=== PATIENT | male | born 1950 | race Caucasian/White ===

== ENCOUNTER 2016-11-09 15:32 | Inpatient (IN) | payer MEDICARE, OTHER ==
[2016-11-09] MEDS ORDERED: TAMSULOSIN HCL 0.4 MG CAP.ER.24H PO SCH (18:00)
[2016-11-09] MEDS ORDERED: ENOXAPARIN SODIUM 30 MG/0.3 ML DISP.SYRIN SQ SCH (18:00)
[2016-11-09] MEDS ORDERED: ACETAMINOPHEN 325 MG TABLET PO PRN (18:07)
[2016-11-09] MEDS ORDERED: ACETAMINOPHEN WITH CODEINE 300MG/30MG TABLET PO PRN (18:07)
--- NOTE | 2016-11-09 19:30 | History and Physical Report ---
History of Present Illnes - History of Present Illness Reason for Visit: Right knee replacement History of Present Illness: This is a 66 year old male who was admitted to [facility] under the care of Dr. 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 He had been seen in consultation by Dr. Berger in April of 2016, however he did not decide to proceed with surgery until this month. I received a call from Dr. Streeter today, as Dr. Berger is off and was made aware of his difficulty urinating while at [facility] and that he had to have a catheter placed but that it was removed and voiding trial was performed today. He came to us with no catheter in place. According to Dr. Streeter, he had experienced no other complications during his hospitalization, and there would be no restrictions on his therapy while at [facility]. - Past Medical History Cardiac: Hyperlipidemia LINUX SERVER ADMINISTRATOR: TIA, Other (Raynaud's disease) Gastrointestinal: GERD Endocrine: Diabetes - Past Surgical History Past Surgical History: Total Knee Replacement (right), Tonsillectomy - Past Social History Smoke: No (chews tobacco) Alcohol: None Drugs: None Lives: With Family Domestic Violence: Negative - Health Maintenance Health Maintenance: Cholesterol Influenza Vaccine: Current for this Influenza Season Pneumonia Vaccine: Yes Resuscitation Status: Resusciation Status Resuscitation Status Full Code - Unable to Obtain History Unable to Obtain: No Review of Systems - Review of Systems Constitutional: negative: Fever, Chills Eyes: negative: pain, vision change, conjunctivae inflammation ENT: negative: Ear Pain, Ear Discharge Respiratory: negative: Cough, Dry Cardiovascular: negative: Chest Pain, Palpitations Gastrointestinal: negative: Nausea Genitourinary: Retention Musculoskeletal: negative: Neck Pain Skin: negative: Rash Neurological: Confusion (and hallucinations (he thought he saw mice and roaches in his room)) - Medications/Allergies Allergies/Adverse Reactions: Allergies Allergy/AdvReac Type Severity Reaction Status Date / Time shrimp AdvReac Intermediate Vomiting Verified 11/09/16 18:45 iodine AdvReac Vomiting Verified 11/09/16 18:45 Current Inpatient Medications: Current Inpatient Medications Acetaminophen (Tylenol) 650 mg PO Q6H PRN PRN Reason: Fever >101 Acetaminophen/Codeine Phosphate (Tylenol #3) 1 each PO Q6 PRN PRN Reason: Mild Pain Amlodipine Besylate (Norvasc) 5 mg PO DAILY LUIS ENRIQUE Aspirin (Aspirin) 81 mg PO DAILY [facility] Enoxaparin Sodium (Lovenox) 30 mg SQ QD [facility] Stop: 11/22/16 18:01 Last Admin: 11/09/16 18:09 Dose: 30 mg Gabapentin (Neurontin) 600 mg PO BID [facility] Glipizide (Glucotrol) [address] [place] [id number] [facility] Metformin HCl (Glucophage) 1,000 mg PO [id number] [facility] Pantoprazole Sodium (Protonix) 40 mg PO 0700 [facility] Tamsulosin HCl (Flomax) 0.4 mg PO 1800 [facility] Last Admin: 11/09/16 18:08 Dose: 0.4 mg Venlafaxine HCl (Effexor Xr) 150 mg PO DAILY [facility] Exam - Exam General: Alert, Oriented to Person, Discheveled HEENT: Atraumatic, PERRLA, EOMI, Mouth Mucous membr. moist/Dickens Neck: No: Stridor, Rigidity Lungs: Clear to auscultation, Normal air movement, Speaks full Sentences Cardiovascular: Regular rate Murmur: No: Systolic Murmur, Diastolic Murmur Murmur Location: No: [place] Abdomen: Normal bowel sounds, Soft, No tenderness Genitourinary: No: Other Male Genitourinary: Penile Edema. No: Scrotal Edema Female Genitourinary: No: Other Integumentary: Normal, Dickens, Warm, Dry Extremities: Other (2+ edema in the right leg. The knee is warm to touch and has limited ROM. The wound is well approximated and not draining or bleeding. ) Neurological: No: Normal gait Psych/Mental Status: Other (confused and hallucinating) Assessment/Plan - Assessment/Plan (1) Total knee replacement status Status: Acute Current Visit: Yes Qualifiers: Laterality: right Qualified Code(s): Z96.651 - Presence of right artificial knee joint Assessment: OT/PT Due to redness will check CBC (2) Diabetes Status: Acute Current Visit: Yes Qualifiers: Diabetes mellitus type: type 2 Diabetes mellitus complication status: without complication Diabetes mellitus long-term insulin use: without long-term use Qualified Code(s): E11.9 - Type 2 diabetes mellitus without complications Assessment: check ACHS accuchecks (3) Hyperlipidemia Status: Acute Current Visit: Yes Qualifiers: Hyperlipidemia type: pure hypercholesterolemia Qualified Code(s): E78.00 - Pure hypercholesterolemia, unspecified; E78.0 - Pure hypercholesterolemia (4) Depression Status: Acute Current Visit: Yes Qualifiers: Depression Type: major depressive disorder Active/Remission status: currently active Psychotic features: without psychotic features VTE Assessment - RISK FACTOR SCORE VTE RISK FACTOR SCORES: AGE OVER 60 YEARS, ANTICIPATED BED CONFINEMENT OR IMMOBILIZATION > 24 HOURS - RISK VTE MODERATE RISK: SCORE OF 2 (RISK PROXIMAL DVT 2-4%) PROPHYAXIS NEEDED (On lovenox)
[2016-11-09] MEDS ORDERED: QUEtiapine FUMARATE 25 MG TABLET PO ONE (19:47)
[2016-11-09 19:49] VITALS: BMI 27.5
[2016-11-09] MEDS ORDERED: GABAPENTIN 300 MG CAPSULE PO SCH (21:00)
[2016-11-09] MEDS ORDERED: HALOPERIDOL LACTATE 5 MG/ML VIAL IM ONE ×2 (21:02→21:21)
[2016-11-09] MEDS ORDERED: LORazepam 2 MG/ML VIAL IM ONE (21:31)
--- NOTE | 2016-11-09 21:56 | Inpatient Progress Note ---
Subjective - Required Recertification Statement I anticipate X number of days because-include discharge plan: 7 - Review of Systems Events since last encounter: I came back in to evaluate Misael as he has become belligerent and agitated. He is suspicious of those around him and is insistent that he be released so that he can go home. His son Isidro is here and seems to have a calming effect on him. He has had 25 mg of Seroquel, 5mg of IM haldol and 2mg of IM ativan. Despite this, he is still belligerent, and cannot be redirected. General: Denies: Chills HEENT: Denies: Head Aches Pulmonary: Denies: Dyspnea, Cough Cardiovascular: Denies: Chest Pain Gastrointestinal: Denies: Nausea, Vomiting Genitourinary: Denies: Dysuria Musculoskeletal: Leg Pain Neurological: Incoordination, Confusion Objective - Exam Vitals and I&O: Vital Signs Temp 98.4 F 11/09/16 21:45 Pulse 82 11/09/16 21:45 Resp 18 11/09/16 21:45 BP 156/92 11/09/16 21:45 Pulse Ox 98 11/09/16 21:45 Intake & Output 11/08/16 11/09/16 11/09/16 23:59 11:59 23:59 Weight 87.09 kg Other: Voiding Method Toilet General: Oriented to Person HEENT: Atraumatic, PERRLA Neck: Supple Lungs: No: Rhonchi, Stridor Cardiovascular: Regular rate Abdomen: No: Absent Bowel Sounds Extremities: Other (1+ edema of RLE) Skin: Normal, [place] Neurological: No: Right Sided Weakness, Left Sided Weakness Psych/Mental Status: No: Mental status NL, Intact Judgment Assessment/Plan - Assessment/Plan (1) Total knee replacement status Status: Acute Current Visit: Yes Qualifiers: Laterality: right Qualified Code(s): Z96.651 - Presence of right artificial knee joint (2) Diabetes Status: Acute Current Visit: Yes Qualifiers: Diabetes mellitus type: type 2 Diabetes mellitus complication status: without complication Diabetes mellitus oil heaterman insulin use: without oil heaterman use Qualified Code(s): E11.9 - Type 2 diabetes mellitus without complications (3) Hyperlipidemia Status: Acute Current Visit: Yes Qualifiers: Hyperlipidemia type: pure hypercholesterolemia Qualified Code(s): E78.00 - Pure hypercholesterolemia, unspecified; E78.0 - Pure hypercholesterolemia (4) Depression Status: Acute Current Visit: Yes Qualifiers: Depression Type: major depressive disorder Active/Remission status: currently active Psychotic features: without psychotic features (5) Postoperative delirium Status: Acute Current Visit: Yes Assessment: Continue medications as in HPI Hope for improvement in am Check CBC and CMP
[2016-11-09 22:24] LABS: MEAN CORPUSCULAR HEMOGLOBIN 32.2 pg (28.0-34.0); MEAN CORPUSCULAR VOLUME 90.9 fl (80.0-100.0)
[2016-11-09 22:37] LABS: eGFR (African) > 60; eGFR (Non-African) > 60
[2016-11-09] MEDS: LORazepam 2 MG/ML VIAL IVP PRN (23:35)
[2016-11-10] MEDS ORDERED: SALINE FLUSH 10 ML DISP.SYRIN IVF ONE ×2 (01:31→06:37)
[2016-11-10] MEDS: LORazepam 2 MG/ML VIAL IVP PRN ×2 (01:37→03:35)
[2016-11-10] MEDS ORDERED: PANTOPRAZOLE SODIUM 40 MG TABLET PO SCH (07:00)
[2016-11-10 08:11] VITALS: BP 151/69
[2016-11-10] MEDS ORDERED: IPRATROPIUM/ALBUTEROL SULFATE 3 ML AMPUL.NEB NEB ONE ×2 (08:11→08:20)
[2016-11-10] MEDS ORDERED: ASPIRIN 81 MG CHEW TAB PO SCH (09:00)
[2016-11-10] MEDS ORDERED: VENLAFAXINE HCL 37.5 MG CAP.ER.24H PO SCH (09:00)
[2016-11-10] MEDS ORDERED: amLODIPine BESYLATE 5 MG TABLET PO SCH (09:00)
== END 2016-11-10 09:05 | disposition short-term general hospital (02) | DRG 93 ==
LOC: SOUTH 15:32
PROVIDERS: ADMIT Family Medicine; ATTEND Family Medicine
DX: R26.9 Unspecified abnormalities of gait and mobility (principal); Z96.651 Presence of right artificial knee joint; E11.9 Type 2 diabetes mellitus without complications; E78.00 Pure hypercholesterolemia, unspecified; F32.9 Major depressive disorder, single episode, unspecified
CPT/HCPCS: 80053; 85027; 94640; 94760; 97116; 97162; 97530; J1630; J1650; J2060; S1016

== ENCOUNTER 2017-07-19 10:18 | Outpatient (CLI) | payer OTHER ==
[2017-07-19 10:37] LABS: BASOPHILS % 0.6 (0.0-1.5); EOSINOPHILS % 2.5 % (0.0-6.8); MEAN CORPUSCULAR HEMOGLOBIN 30.7 pg (28.0-34.0); MEAN CORPUSCULAR VOLUME 90.2 fl (80.0-100.0); MONOCYTES % 6.3 % (0.0-11.0)
[2017-07-19 11:01] LABS: eGFR (African) > 60; eGFR (Non-African) > 60
== END 2017-07-19 10:20 ==
LOC: LAB 10:18
PROVIDERS: ATTEND Family Medicine
DX: E11.9 Type 2 diabetes mellitus without complications (principal); I10 Essential (primary) hypertension
CPT/HCPCS: 36415; 80053; 83036; 85025

== ENCOUNTER 2017-09-26 08:58 | Emergency (ER) | payer MEDICARE, OTHER ==
[2017-09-26 09:32] LABS: BASOPHILS % 0.5 (0.0-1.5); EOSINOPHILS % 2.2 % (0.0-6.8); MEAN CORPUSCULAR HEMOGLOBIN 31.9 pg (28.0-34.0); MEAN CORPUSCULAR VOLUME 92.8 fl (80.0-100.0); MONOCYTES % 6.4 % (0.0-11.0); NEUTROPHILS # 3.4 # k/uL (1.4-7.7)
[2017-09-26 09:41] LABS: eGFR (African) > 60; eGFR (Non-African) > 60
--- NOTE | 2017-09-26 10:38 | ED Physician Documentation ---
General Adult - HISTORIAN Historian: patient - HPI Stated Complaint: Unsteady Gait/Right Arm Pain Chief Complaint: General Adult Further Comments: yes (67 year old male patient presents with complaint of being "off balance". Patient reports he woke up at 0430 and "can't walk straight". Patient reports 3 year history of dizziness. "They can't figure out why". States he went to [facility] and now Dr Hess. Denies any current medical treatment for dizziness. "Dr Hess took me off one medicine". Denies MRI/MRA or neurology consult. Discussed carotid US, reports "done a long time ago". Family reports history of TIA. Patient reports 3 year history of dizziness. states "he walks like he's drunk". states [facility] was his PCP for 3 years and "could not figure it out". Patient states now he goes to Dr hess, states "he hasn't done anything". Patient denies dizziness at present.) - ROS CONST: denies: no problems EYES/ENT: none CVS/RESP: none GI/: none MS/SKIN/LYMPH: other (Neuropathy) NEURO/PSYCH: dizziness - PAST HX Past History: hypertension, other (BPH, depression, diabetic neuropathy, HLD, Insomnia, obstructive sleep apnea, Raynaud disease) Other History: diabetes Type 2 Surgeries/Procedures: other (right knee replacement, tonsilectomy) Allergies/Adverse Reactions: Allergies Allergy/AdvReac Type Severity Reaction Status Date / Time shrimp AdvReac Intermediate Vomiting Verified 11/09/16 18:45 iodine AdvReac Vomiting Verified 11/09/16 18:45 Home Medications: Ambulatory Orders Medication Instructions Recorded Atorvastatin Calcium [Lipitor] 10 mg PO HS 09/07/12 Multivitamin with Minerals 1 each PO DAILY 09/07/12 [Multiple Vitamin] Ranitidine HCl [Zantac] 300 mg PO PM 04/12/15 Tamsulosin HCl [Flomax] 0.4 mg PO DAILY 09/26/17 - SOCIAL HX Smoking History: non-smoker - FAMILY HX Family History: No - VITAL SIGNS Vital Signs: Vital Signs Temp Pulse Resp BP Pulse Ox 98.1 F 72 18 158/84 96 09/26/17 08:58 09/26/17 09:43 09/26/17 08:58 09/26/17 08:58 09/26/17 09:43 - REVIEWED ASSESSMENTS Nursing Assessment Reviewed: Yes Vitals Reviewed: Yes Progress - Progress Progress: Reviewed lab and CT results with patient, son and . recommend neuro evaluation. List of [facility] printed and provided. and son verbalized understanding. Extensive discussion on safety. Patient has cane at home, "I'm gonna use that". Offered to write prescription for walker. reports patient has a walker. Strongly encouraged use of walker or cane at all times, especially with icy weather conditions today. ED Results Lab/Radiology - Lab Results Lab Results: Lab Results 09/26/17 09/26/17 09/26/17 09:25 09:25 09:25 WBC 5.40 K/ul K/ul (4.00-12.00) RBC 4.56 M/ul M/ul (3.90-5.20) Hgb 14.6 g/dL g/dL (12.0-18.0) Hct 42.3 % % (37.0-53.0) MCV 92.8 fl fl (80.0-100.0) MCH 31.9 pg pg (28.0-34.0) MCHC 34.4 g/dL g/dL (30.0-36.0) RDW 13.0 % % (11.3-14.3) Plt Count 238 K/mm3 K/mm3 (130-400) Neut % (Auto) 62.0 % % (39.0-79.0) Lymph % (Auto) 26.9 % % (16.0-50.0) [place] % (Auto) 6.4 % % (0.0-11.0) Eos % (Auto) 2.2 % % (0.0-6.8) Baso % (Auto) 0.5 (0.0-1.5) Neut # (Auto) 3.4 # k/uL # k/uL (1.4-7.7) Lymph # (Auto) 1.5 # k/uL # k/uL (0.6-4.0) [place] # (Auto) 0.4 # k/uL # k/uL (0.0-0.9) Eos # (Auto) 0.1 # k/uL # k/uL (0.0-0.6) Baso # (Auto) 0.0 # k/uL # k/uL (0.0-0.5) Reactive Lymphs % 1.9 % % (0.0-5.0) Reactive Lymphs # 0.1 # k/uL # k/uL (0.0-0.8) Sodium 139 mmol/L mmol/L (136-145) Potassium 4.1 mmol/L mmol/L (3.5-5.1) Chloride 98 mmol/L mmol/L (98-107) Carbon Dioxide 28 mmol/L mmol/L (22-30) BUN 11 mg/dL mg/dL (9-20) Creatinine 0.80 mg/dL mg/dL (0.66-1.25) Est GFR ( Amer) > 60 (60 - ) Est GFR (Non-Af Amer) > 60 (60 - ) Glucose 212 mg/dL H mg/dL (74-106) Calcium 9.0 mg/dL mg/dL (8.4-10.2) Total Bilirubin 0.8 mg/dL mg/dL (0.2-1.3) AST 29 U/L U/L (15-46) ALT 38 U/L U/L (13-69) Alkaline Phosphatase 130 U/L H U/L (38-126) Creatine Kinase 46 U/L L U/L (55-170) Troponin I < 0.03 ng/mL L ng/mL (0.03-0.06) Total Protein 7.1 g/dL g/dL (6.3-8.2) Albumin 4.3 g/dL g/dL (3.5-5.0) - Orders Orders: ED Orders Category Date Time Status Continuous EKG monitoring Q30M Care 09/26/17 09:13 Active Continuous Pulse Oximetry Q30M Care 09/26/17 09:[address] IV Lock 1T Care 09/26/17 09:[address] BRAIN W/O CONTRAST Stat Exams 09/26/17 09:12 Taken CBC/PLATELET/DIFF Routine Lab 09/26/17 09:25 Completed CMP Routine Lab 09/26/17 09:25 Completed CREATINE KINASE Routine Lab 09/26/17 09:25 Completed TROPONIN I (cTnI) Stat Lab 09/26/17 09:25 Completed URINALYSIS Routine Lab 09/26/17 09:13 Ordered EKG WITH COMPARISON Stat Ther 09/26/17 09:13 Ordered General Adult Physical Exam - PHYSICAL EXAM GENERAL APPEARANCE: [id number] N EENT: eye inspection normal, ENT inspection normal, pharynx normal, no signs of dehydration, FAYE, no nystagmus, TM's nml RESPIRATORY: no resp distress, chest non-tender, breath sounds normal CVS: reg rate & rhythm, heart sounds normal, equal pulses, no murmur, no gallop , PMI nml, no JVD, no friction rub, other (SR on monitor) ABDOMEN: soft, no organomegaly, normal bowel sounds, no abdominal bruit, no distension BACK: normal inspection, no CVA tenderness SKIN: normal color, warm/dry, NR, INT, PAL, DR EXTREMITIES: non-tender, normal range of motion, no evidence of injury, no edema , other (unsteady gait, leans to right) NEURO: oriented X3, CN's nml as tested, motor nml, sensation nml, mood/affect nml Discharge Clincal Impression: Falls frequently, Unsteady gait, Non-compliance, Dizziness Referrals: Samir Hess MD [Primary Care Provider] - 2 Days Additional Instructions: Use your cane or walker at all times. Call [place] [facility] for an appointment in the morning - you need further evaluation and testing by a Neurologist regarding your falling and dizziness Continue all current medications. Condition: Stable Disposition: 01 HOME, SELF-CARE Decision to Admit: NO Decision Time: 11:00
[2017-09-26 11:16] VITALS: BP 158/83
[2017-09-26 17:25] LABS: APPEARANCE,URINE CLEAR (CLEAR); COLOR,URINE YELLOW (YELLOW); OCCULT BLOOD,URINE NEGATIVE (NEGATIVE); UROBILINOGEN URINE 0.2 Eu (0.2-1.0)
--- NOTE | 2017-09-27 06:59 | Diagnostic Imaging Report ---
FOUZIA ROBIN ([place]) - ER [facility] [address] [facility].[address] [address] Report Submission Date: Sep 26, 2017 9:54:21 AM [employer]ANKING SERVICES OFFICER Patient Study Name: ESTRELLITA BOURGEOIS Date: Sep 26, 2017 9:22:25 AM [employer]ANKING SERVICES OFFICER Modality Type: CT\SR Gender: M Description: CT BRAIN W/O CONTRAST : 48 Institution: [facility] Physician: FOZUIA ROBIN) - ER CT head without contrast History: Weakness Technique: Images through the brain were obtained without contrast. Findings: No mass, midline shift, obstructive hydrocephalus or acute intracranial hemorrhage is present. The ventricles are normal. Chronic bilateral lacunar infarcts are present. No extraaxial fluid collection is identified. Impression: No acute intracranial process. Chronic changes. Electronically signed on Sep 26, 2017 9:54:21 AM BANKING SERVICES OFFICER by: Shane MURO
== END 2017-09-26 11:12 | disposition home or self-care (01) ==
LOC: ED 08:58
DX: R26.81 Unsteadiness on feet (principal); R42 Dizziness and giddiness; Z91.81 History of falling; Z91.19 Patient's noncompliance with other medical treatment and regimen
CPT/HCPCS: 70450; 80053; 81002; 82550; 84484; 85025; 99283; 99284; S1016

== ENCOUNTER 2017-11-10 09:54 | Outpatient (CLI) | payer OTHER | END 2017-11-10 09:55 | LOC: LAB 09:54 | PROVIDERS: ATTEND Family Medicine | DX: E11.9 Type 2 diabetes mellitus without complications (principal) | CPT/HCPCS: 36415; 83036 ==

== ENCOUNTER 2018-01-18 10:00 | Outpatient (CLI) | payer MEDICARE, OTHER ==
--- NOTE | 2018-01-18 17:40 | Diagnostic Imaging Report ---
VALERIANO ABREU [facility] [address] [facility].[address] [address] Report Submission Date: Jan 18, 2018 11:01:47 AM CDT Patient Study Name: ESTRELLITA BOURGEOIS Date: Jan 18, 2018 10:22:44 AM CDT Modality Type: DX Gender: M Description: SPINE : 48 Institution: [facility] Physician: VALERIANO ABREU Examination: Cervical spine History: CHRONIC NECK PAIN AND POPPING (Hx) Comparison exams: None available Findings: 4 views of the cervical spine demonstrate normal height and alignment. No anterior compression. No abnormal listhesis. Scattered osteophyte formation. No odontoid abnormality. No prevertebral abnormality Impression: Degenerative changes. No acute osseous abnormality. If patient is experiencing neurologic symptoms, consider obtaining MRI to further evaluate. Electronically signed on Jan 18, 2018 11:01:47 AM CDT by: Roel MURO
== END 2018-01-18 10:02 ==
LOC: RAD 10:00
PROVIDERS: ATTEND Family Medicine
DX: M54.2 Cervicalgia (principal)
CPT/HCPCS: 72050

== ENCOUNTER 2018-03-01 08:28 | Outpatient (CLI) | payer OTHER ==
--- NOTE | 2018-03-01 11:43 | HISTORY AND PHYSICAL REPORT ---
HISTORY OF PRESENT ILLNESS: I had the opportunity of seeing Darshan Bates today as an outpatient at [facility]. 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 He has cervicalgia neck pain post-occipital symptoms. He has stiffness in the neck, pain with turning his neck left and right, pain which radiates over the top of the top of the shoulders. He denies scapular pain or arm pain. He reports he has numbness in the arms. He reports numbness in both hands. He has a history of a previous cerebrovascular accident and he said he was told several years ago that he would likely need cervical spine treatment. He rates the symptoms as severe as 8 over 10 on the visual analog scale and never better than 2 over 10 on the visual analog scale and getting worse. Worse with activities and driving his car. PAST MEDICAL HISTORY: 1. History of bleeding tendency. 2. CVA x2. 3. Depression. 4. Diabetes. 5. Insomnia. 6. Degenerative joint disease (DJD). 7. Osteoarthritis. 8. Peripheral neuropathy. 9. GERD. 10. BPH. PAST SURGICAL HISTORY: 1. Right total knee replacement. 2. Tonsillectomy. CURRENT DAILY MEDICATIONS: 1. Metformin 1000 mg b.i.d. 2. Quetiapine at bedtime. 3. Effexor 50 mg daily. 4. Flomax 0.4 mg at bedtime. 5. Aspirin 81 mg daily. 6. Losartan 25 mg daily. 7. Atorvastatin 40 mg at bedtime. 8. Glimepiride 2 mg at bedtime. 9. Hydroxyzine 50 mg p.r.n. 10. Vitamin B12 daily. 11. Omeprazole 40 mg daily. 12. Gabapentin 600 mg t.i.d. ALLERGIES: 1. Tramadol. 2. [place]. 3. Tylenol No. 3. 4. Shrimp. 5. Iodine. No reactions listed. SOCIAL HISTORY: He currently chews tobacco. He is a recovering alcoholic. He quit drinking in 2000. Denies recreational drug use. He has been for 48 years. He has 4 children. He lives at home with his . He completed the 12th grade. He is not currently employed. He retired in 2017. FAMILY HISTORY: Father with heart disease. Mother with ovarian cancer. Sister with respiratory disease. REVIEW OF SYSTEMS: In the last month or so, he reports a weight loss, urinary incontinence, and feeling depressed. Pain is worsened with twisting, getting up from a chair, stress, and fatigue. Pain is improved with lying down. PHYSICAL EXAMINATION: General: The patient is well nourished, well developed, and in no apparent distress. Awake, alert, and oriented. HEENT: Pupils are equal, round, and reactive to light and accommodation. Extraocular movements intact. No facial droop. Neck: There is full range of motion of the cervical spine. No evidence of adenopathy. Thyroid is nontender, not enlarged. Carotids are without bruits. Chest: Clear to auscultation bilaterally. Normal chest excursion. Heart: Regular rate and rhythm without murmur. Abdomen: Benign. Normoactive bowel sounds. Motor/sensory: Intact in the upper and lower extremities. Moves all extremities freely. Spine: There is limited range of motion of the cervical spine. Strength is 5/ 5 and equal in the upper extremities. Pastor strength is intact. Reflexes are 2 + and equal in biceps and triceps. DIAGNOSTIC STUDIES: An MRI from February 12, 2017, was reviewed. The patient has a large C6-C7 disc herniation which impresses upon the thecal sac. He, otherwise, has posterior osteophytes at C3-C4, C4-C5 and to a lesser extent at C5-C6 with spondylolytic changes at multiple levels throughout the cervical spine. ASSESSMENT: 1. Cervical stenosis, large C6-C7 disc herniation without radiculitis. 2. Cervical spondylosis. 3. Occipital neuralgia. PLAN: Plan today for cervical epidural steroid injection at left C7-T1. If this does not improve his symptoms, I would recommend a facet medial branch block upon follow up. Thank you for allowing me to take part in the care of this nice gentleman. I appreciate the opportunity to take part in the care of your patients. cc: Kathy MURO
--- NOTE | 2018-03-01 11:47 | CERVICAL ESI WITH FLUORO ---
PROCEDURE: Left C7-T1 epidural steroid injection with fluoroscopic guidance. DESCRIPTION OF PROCEDURE: The risks and benefits were discussed with the patient, including the risks of infection, bleeding, nerve injury including paralysis, and headache. Furthermore, I discussed the risk of steroid exposure causing hyperglycemia, hypertension, osteoporosis, or increased infectious risks. The patient understood these risks and agreed to proceed. Consent was obtained. The patient was placed prone on the fluoroscopy table with a pillow underneath the chest to afford slight anterior flexion of the cervical spine. The patient' s back of the neck was cleaned and a sterile drape was applied. A Tuohy epidural needle was inserted with a left paramedian approach at the C7- T1 interspace level. The position of the needle was verified with AP and lateral fluoroscopic views. The needle was advanced with a normal saline loss-of -resistance technique until [id number] was obtained. On obtaining loss- of-resistance to normal saline it was verified that there was no aspiration of CSF or blood. Omnipaque 240 myelogram dye was injected into the cervical epidural space. It was verified with fluoroscopic views that the dye was located within the epidural space in the desired distribution. At this point, the medication was injected into the cervical epidural space. The stylet was replaced in the needle and the needle was removed from the neck. The neck was cleaned and a bandage was applied over the injection site. The patient tolerated the procedure well and was monitored afterwards for a total of 20 minutes during which time the vital signs remained stable and no adverse sequelae were experienced. The patient was discharged home in good condition. Prior to discharge the patient was given discharge instructions. ASSESSMENT: 1. Cervical stenosis, large C6-C7 disc herniation without radiculitis. 2. Cervical spondylosis. 3. Occipital neuralgia. PLAN: Left C7-T1 epidural steroid injection with fluoroscopic guidance. FOLLOW UP: Return to clinic if problems develop or worsen. cc: Kathy MURO
== END 2018-03-01 08:32 ==
LOC: OUT 08:28
PROVIDERS: ATTEND Anesthesiology Pain Medicine
DX: M48.02 Spinal stenosis, cervical region (principal); M54.12 Radiculopathy, cervical region
CPT/HCPCS: 62321; 99213; G0463; A4550; Q9966

== ENCOUNTER 2018-05-18 11:47 | Outpatient (CLI) | payer MEDICARE, OTHER | END 2018-05-18 11:50 | LOC: LAB 11:47 | PROVIDERS: ATTEND Family Medicine | DX: E11.9 Type 2 diabetes mellitus without complications (principal); N40.0 Benign prostatic hyperplasia without lower urinary tract symptoms | CPT/HCPCS: 36415; 83036; 84153 ==

== ENCOUNTER 2018-10-12 12:25 | Outpatient (CLI) | payer OTHER ==
--- NOTE | 2018-10-12 15:20 | Diagnostic Imaging Report ---
VALERIANO ABREU [facility] [address] [facility] [address] [place], [place]. [address] Report Submission Date: Oct 12, 2018 2:43:12 PM [employer] Patient Study Name: AUDI KENNEY Date: Oct 12, 2018 1:54:18 PM [employer] Modality Type: CT\SR Gender: F Description: CT PELVIS W/O CONTRAST : [birth year] Institution: [facility] Physician: VALERIANO ABREU Exam: CT pelvis without contrast. History: Follow-up right hip fracture. Axial images through the right hip are submitted along with sagittal and coronal reformatted images. An intramedullary device in the proximal right femur is noted. A healed right intertrochanteric fracture is noted. Mild narrowing, sclerosis and spurring of both hip joints are noted. Narrowing, sclerosis and spurring at the symphysis pubis is noted. No acute fracture of the pubis bones are noted. No other soft tissue abnormalities are identified. Impression: Status post ORIF proximal right femur fracture. Degenerative changes in both hip joints and at the symphysis pubis. No pubic bone fractures are identified. Electronically signed on Oct 12, 2018 2:43:12 PM [employer] by: Oliverio MURO
--- NOTE | 2018-10-13 13:03 | Diagnostic Imaging Report ---
KELVIN HARVEY [facility] [id number] [facility].[address] [address] Report Submission Date: Oct 12, 2018 3:12:00 PM DBA Patient Study Name: ESTRELLITA BOURGEOIS Date: Oct 12, 2018 12:39:38 PM DBA Modality Type: US Gender: M Description: US DUPLEX ARTERIAL LE BILAT : 48 Institution: [facility] Physician: KELVIN HARVEY EXAMINATION: US DUPLEX ARTERIAL LE BILAT CLINICAL HISTORY: Blue/purple toe right and mildly to left 3rd and 4th toes COMPARISON: None FINDINGS: There is mildly elevated peak systolic velocity (less than 2.0) in the right posterior tibial artery suggestive of less than 50% stenosis. Otherwise the arteries of the right lower extremity are patent and demonstrate normal triphasic waveforms, Doppler color flow, and velocities. There is mildly elevated peak systolic velocity (less than 2.0) in the distal left superficial femoral artery suggestive of less than 50% stenosis. Otherwise the arteries of the left lower extremity are patent and demonstrate normal triphasic waveforms, Doppler color flow, and velocities. IMPRESSION Normal triphasic waveforms in the lower extremity arteries but with areas of abnormal peak systolic velocity ratios in both legs as described above suggestive of less than 50% stenosis. Given these findings and the patient's symptoms, CTA runoff is recommended for further evaluation. Electronically signed on Oct 12, 2018 3:12:00 PM DBA by: Chuy MURO
== END 2018-10-12 12:29 ==
LOC: RAD 12:25
PROVIDERS: ATTEND Podiatrist Foot & Ankle Surgery
DX: E11.9 Type 2 diabetes mellitus without complications (principal); I73.9 Peripheral vascular disease, unspecified; I75.023 Atheroembolism of bilateral lower extremities
CPT/HCPCS: 93925

== ENCOUNTER 2018-11-07 14:53 | Outpatient (CLI) | payer OTHER, MEDICARE | END 2018-11-07 14:54 | LOC: LAB 14:53 | PROVIDERS: ATTEND Family Medicine | DX: E11.9 Type 2 diabetes mellitus without complications (principal) | CPT/HCPCS: 36415; 83036 ==

== ENCOUNTER 2019-03-06 12:40 | Outpatient (CLI) | payer OTHER ==
[2019-02-23 20:55] VITALS: BP 147/84
--- NOTE | 2019-03-06 16:05 | Diagnostic Imaging Report ---
VALERIANO ABREU [facility] [address] [facility] [address] [place], [place]. [address] Report Submission Date: Mar 06, 2019 2:29:25 PM CDT Patient Study Name: ESTRELLITA BOURGEOIS Date: Mar 06, 2019 12:50:41 PM CDT Modality Type: CT\SR Gender: M Description: CT PELVIS W/O CONTRAST : 48 Institution: [facility] Physician: VALERIANO ABREU Examination: CT pelvis. History: RT HIP PAIN Comparison exams: Plain film dated 23 February 2019 Technique: Axial imaging was sagittal and coronal reconstruction. Findings: Cortical margins of the femoral head, neck, intertrochanteric region and shaft are intact. Acetabular spurring. Pubic symphysis degenerative changes. Inferior pubic symphysis degenerative tugging. Cortical margins otherwise without irregularity there spurring involving the iliac wings bilaterally. Mild sacroiliac joint degenerative changes. Lumbar spine degenerative spurring. Intrapelvic structures without acute appearing process. Sigmoid diverticula. No suspicious soft tissue fluid collection. No muscular regularity. Impression: Articular degenerative changes. No acute appearing cortical abnormality. If suspect soft tissue or labral abnormality, consider obtaining MRI to further evaluate. Electronically signed on Mar 06, 2019 2:29:25 PM CDT by: Roel MURO
== END 2019-03-06 12:42 ==
LOC: RAD 12:40
PROVIDERS: ATTEND Family Medicine
DX: M25.551 Pain in right hip (principal)
CPT/HCPCS: 72192

== ENCOUNTER 2019-07-10 15:16 | Outpatient (CLI) | payer MEDICARE, OTHER ==
[2019-02-23 20:55] VITALS: BP 147/84
[2019-07-10 15:39] LABS: BASOPHILS % 0.3 % (0.0-1.5); NEUTROPHILS # 4.2 # k/uL (1.4-7.7)
[2019-07-10 16:12] LABS: A1C 6.1 % (<5.7)
[2019-07-10 16:35] LABS: eGFR (Non-African) > 60
== END 2019-07-10 15:21 ==
LOC: LAB 15:16
PROVIDERS: ATTEND Family Medicine
DX: I10 Essential (primary) hypertension (principal); E11.9 Type 2 diabetes mellitus without complications
CPT/HCPCS: 36415; 80053; 83036; 85025